=== PATIENT | female | born 1985 | race Caucasian/White ===

== ENCOUNTER 2023-07-29 15:04 | Observation (INO) | payer OTHER, SELFPAY ==
[2023-07-29 15:07] VITALS: BP 129/91; PULSE 87; RESP 16; TEMP 36.1; O2SAT 95; BMI 34.0
--- NOTE | 2023-07-29 15:29 | ED.VIS.GI ---
HPI HPI - GI History of Present Illness Chief Complaint: Abd Pain Informant: patient Abdominal Pain/Flank Pain Onset: Days (2) Context: Gradual Onset Timing: Continuous Quality: Cramping and Sharp Location: Epigastric and RUQ Worsened by: Food Relieved by: Nothing Nausea/Vomiting/Emesis GI Symptom: Positive for Nausea and Vomiting Quality: Positive for Nonbilious; Negative for Blood streaks, Coffee ground or Hematemesis Diarrhea/Melena/Hematochezia GI Symptom: Positive for Diarrhea; Negative for Melena or Hematochezia Stool Quality: Positive for Loose and Watery Associated Symptoms Associated Symptoms: Negative for Dysuria, Frequency or Hematuria Narrative Narrative: Patient presents with right upper quadrant abdominal pain that has been getting worse over the past 2 days. Patient describes it as sharp and cramping. Patient states it is mainly over the right upper quadrant. Patient states it radiates into her back. Patient states her pain is worse with eating. Patient states it gets worse while she was eating. Patient admits to some nausea, vomiting, and diarrhea. Patient denies any melena or hematochezia. Patient denies any hematemesis or coffee-ground emesis. Patient denies any dysuria, frequency, or hematuria. Patient admits to some subjective chills and sweats. Patient admits to some slight shortness of breath because her pain also gets worse with deep breathing. [facility] Medical History (Updated 07/29/23 @ 21:[address] Marcelo Telles MD) Hypertension Home Medications bupropion HCl 200 mg tablet,12 hr sustained-release (Wellbutrin SR) 200 mg PO Q12H 07/29/23 [History Last Taken Unknown] duloxetine 30 mg capsule,delayed release 30 mg PO DAILY 07/29/23 [History Last Taken Unknown] hydroxyzine pamoate 50 mg capsule 50 - 100 mg PO TID PRN PRN anxiety 07/29/23 [History Last Taken Unknown] losartan 100 mg-hydrochlorothiazide 25 mg tablet 1 tab PO DAILY 07/29/23 [History Last Taken Unknown] Allergy/AdvReac Type Severity Reaction Status Date / Time codeine Allergy Intermediate Hives Verified 07/29/23 15:06 Surgical History (Updated 07/29/23 @ 15:[address] Cosmo Tubbs, DO) History of section History of endometrial ablation Hx of appendectomy Social History Smoking Status: Current every day smoker tobacco type: cigarettes ROS ROS ED Constitutional Constitutional ED: Reports chills and sweats; Denies fever(s) Eyes Eyes: Denies blurry vision or change in vision ENT ENT ED: Denies rhinorrhea or sore throat Cardiovascular Cardiovascular: Denies chest pain or palpitations Respiratory/Chest Respiratory/Chest: Reports dyspnea; Denies cough Gastrointestinal Gastrointestinal: Denies nausea or vomiting Genitourinary Genitourinary ED: Denies dysuria or hematuria Musculoskeletal Musculoskeletal: Reports back pain; Denies neck pain Integumentary Denies abscess or rash Neurologic Neurologic: Reports headache(s); Denies weakness Allergic/Immunologic Allergic/Immunologic ED: Denies mouth swelling or urticaria EXAM Physical Exam Const Vital Signs: 07/29/23 15:07 07/29/23 17:04 07/29/23 19:00 Temperature 96.9 F L Temperature Source Temporal Pulse Rate 87 78 Respiratory Rate 16 18 Blood Pressure 129/91 H 126/79 H 128/94 H Blood Pressure Mean 103 94 105 Pulse Ox 95 98 Oxygen Delivery Method Room Air Room Air Positive well nourished, well developed and obese General Appearance ED: well developed and NAD Nutritional Appearance: obese HEENT Reports moist mucous membranes Neck supple and no JVD Resp normal respiratory effort and clear to auscultation bilaterally Cardio regular rate and regular rhythm GI non-distended Palpation: soft and tender epigastric, RUQ and Deshpande's sign; Negative for guarding or rebound tenderness present Extremity full ROM Neuro CN's II-XII intact bilaterally, moves all extremities and no sensory deficits noted Sensorium / Orientation: alert Motor Exam: strength 5/5 throughout Psych mental status grossly normal Skin no wounds MDM MDM MDM Narrative Medical decision making narrative: Differential diagnosis includes cholecystitis, cholelithiasis, gastric ulcer, duodenal ulcer, pancreatitis, bowel obstruction, perforation, gastritis, and pyelonephritis. CBC will be obtained to assess for leukocytosis and anemia. Comprehensive metabolic profile will be obtained to assess for hepatic function, renal function, and electrolyte abnormality. Lipase will be obtained to assess for pancreatitis. Urinalysis will be obtained to assess for urinary tract infection and hematuria. Right upper quadrant ultrasound will be obtained to assess for cholecystitis and cholelithiasis. Lab Data Attestation: I reviewed the patient's lab results. Lab results narrative: CBC was reviewed and was within normal limits. Comprehensive metabolic profile was reviewed. Potassium was low at 3.0. ALT was slightly elevated at 72. The remainder was within normal limits. Anion gap was normal. Lipase was reviewed and was normal at 36. Serum hCG was reviewed and was negative. Urinalysis was reviewed. There is no evidence of urinary tract infection or hematuria. Labs: Laboratory Results - last 24 hr 07/29/23 07/29/23 16:20 18:20 WBC 9.9 RBC 5.44 H Hgb 14.5 Hct 43.6 MCV 80.1 L MCH 26.7 L MCHC 33.3 RDW Std Deviation 43.8 RDW Coeff of Mario 15.2 H Plt Count 381 MPV 9.6 Immature Gran % (Auto) 0.300 Neut % (Auto) 59.2 Lymph % (Auto) 32.4 [place] % (Auto) 5.9 Eos % (Auto) 1.6 Baso % (Auto) 0.6 Absolute Neuts (auto) 5.9 Absolute Lymphs (auto) 3.20 Nucleated RBC % 0 Sodium 134 L Potassium 3.0 L Chloride 101 Carbon Dioxide 29.0 Anion Gap 4 L BUN 9 Creatinine 0.70 Estim Creat Clear Calc 112.95 Est GFR (MDRD) Af Amer 120 Est GFR (MDRD) Non-Af 99 BUN/Creatinine Ratio 12.9 Glucose 83 Calcium 10.0 Total Bilirubin 0.50 AST 34 ALT 72 H Alkaline Phosphatase 72 Total Protein 8.0 Albumin 3.9 Globulin 4.1 Albumin/Globulin Ratio 1.0 Lipase 36 Serum , Qual NEGATIVE Urine Color Yellow Urine Clarity Clear Urine pH 6.0 Ur Specific [place] 1.010 Urine Protein Negative Urine Glucose (UA) Normal Urine Ketones Negative Urine Occult Blood Negative Urine Nitrite Negative Urine Bilirubin Negative Urine Urobilinogen Normal Ur Leukocyte Esterase Negative Urine RBC 0 SEEN Urine WBC 0-5 SEEN Ur Squamous Epith Cells 0-5 SEEN Urine Bacteria 2+ Urine Mucus 0 SEEN Radiography Diagnostic Testing: Clinical Impression(s) from Imaging Studies Gallbladder Ultrasound 07/29/23 15:59 IMPRESSION: Cholelithiasis and findings suspicious for acute cholecystitis HIDA scan would be helpful for confirmation if clinically warranted Electronically Signed: Isacc Kenney MD at 18:20 EDT , Right upper quadrant ultrasound was obtained. There is a solitary gallstone. There is a positive sonographic Deshpande sign. There is no gallbladder wall thickening. There is no pericholecystic fluid. There is no ductal dilatation. This was interpreted by the radiologist was also independently reviewed by myself. Treatment and Re-Evaluation :: Patient was given IV fluids, morphine, and Zofran. Patient was advised of her findings. Case was discussed with Dr. Telles from general surgery. He will be in to evaluate the patient. He will admit the patient to his service. Patient understood and was agreeable with the plan. All questions were answered. Discharge Plan Triage Chief Complaint: Abd Pain ED Provider: Cosmo Tubbs Dx/Rx/DC Orders Clinical Impression: Hypertension, Cholelithiasis Prescriptions: No Action hydroxyzine pamoate 50 mg capsule 50 - 100 mg PO TID PRN PRN (Reason: anxiety) losartan-hydrochlorothiazide 100-25 mg tablet 1 tab PO DAILY duloxetine 30 mg capsule,delayed release(DR/EC) 30 mg PO DAILY bupropion HCl [Wellbutrin SR] 200 mg tablet sustained-release 12 hr 200 mg PO Q12H Primary Care Provider: Michele Larose Referrals: Michele Larose MD [Primary Care Provider] - Disposition Disposition: Acute Care Hospital [facility]
--- NOTE | 2023-07-29 15:59 | US_ITS ---
STUDY: ABDOMINAL ULTRASOUND - RIGHT UPPER QUADRANT REASON FOR VISIT: Female, 38 years old PAIN TECHNIQUE: Ultrasound evaluation of the right upper quadrant was performed with real-time and static burgess-scale imaging. TECHNICAL QUALITY: Adequate. COMPARISON: None. FINDINGS: Liver: The liver measures 15.7 cm. There is normal echogenicity of the liver. The bile ducts are within normal limits. There is hepatic color flow. The direction of portal flow is hepatopetal. There is no demonstrated mass lesion. Gallbladder: Normal distended gallbladder. The gallbladder wall measures 2 mm. There is a positive sonographic Deshpande''s sign. There is no pericholecystic fluid. There is a solitary stone. Common Bile Duct (C.B.D.): The common bile duct measures 4 mm. Pancreas: Suboptimally visualized due to bowel gas producing artifact. Right Kidney: Normal size of the right kidney. The right kidney measures 12.3 x 5.4 x 5.5 cm. Normal renal cortex. The right cortex measures 1.7 cm. There is no demonstrated renal mass or cyst. There is no right hydronephrosis. US/Gallbladder IMPRESSION: Cholelithiasis and findings suspicious for acute cholecystitis HIDA scan would be helpful for confirmation if clinically warranted Electronically Signed: Isacc Kenney MD at 18:20 EDT ,
[2023-07-29] MEDS: Ondansetron 4 MG/2 ML Vial IV ×2 (16:18→20:06)
[2023-07-29] MEDS: Morphine 4 MG/ML Syringe IV ×2 (16:19→20:06)
[2023-07-29] MEDS: 0.9% Normal Saline (1000mL) 1,000 ML 1000 ML IV (16:20)
[2023-07-29 16:45] LABS: Absolute Neutrophil Count 5.9 X10^3/uL (2.0-7.7); Basophil# 0.06 X10^3/uL; Basophil% 0.6 % (0-1); Eosinophil# 0.16 X10^3/uL; Eosinophils% 1.6 % (0-5); Hematocrit 43.6 % (37-47); Hemoglobin 14.5 g/dL (12.0-15.0); Lymphocyte % 32.4 % (19-41); Mean Corp Hgb Conc 33.3 g/dL (32-36); Mean Corpuscular Hgb 26.7 pg (27.0-32.0); Mean Corpuscular Volume 80.1 fL (81-99); Mean Platelet Vol. 9.6 fl (6.2-12.0); Monocyte# 0.58 X10^3/uL; Monocyte% 5.9 % (0-10); NRBC Flagged by Analyzer 0 % (0-5); Neutrophil # 5.85 X10^3/uL (2.7-7.7); Neutrophil % 59.2 % (47-70); Platelet Count 381 K/mm3 (150-450); RBC Distribution Width CV 15.2 % (11.6-14.6); RBC Distribution Width SD 43.8 fl (35.1-43.9); Red Blood Count 5.44 M/mm3 (4.2-5.4); White Blood Count 9.9 K/mm3 (4.4-11.0)
[2023-07-29 17:04] VITALS: BP 126/79; PULSE 78; RESP 18; O2SAT 98
[2023-07-29 17:10] LABS: Internal QC Validated? YES +Cl - CLEAR BKGD; Pregnancy, Serum, hCG Quali. NEGATIVE Negative; Record Kit Lot#, Serum Preg. 718086
[2023-07-29 17:13] LABS: AST(SGOT) 34 U/L (15-37); Alanine Aminotransfer ALT/SGPT 72 U/L (13-56); Albumin, Serum 3.9 g/dL (3.2-5.0); Alkaline Phosphatase 72 U/L (45-117); Anion Gap 4 (5-15); BUN 9 mg/dL (7-18); BUN/Creat Ratio 12.9 RATIO (10-20); Chloride 101 mmol/L (98-107); EST Glomerular Filtration Rate 99 mL/min (>60); Est Glom Filt Rate - Afr Amer 120 mL/min (>60); Estimated Creatinine Clearance 112.95 ml/min; Globulin 4.1 g/dL (2.2-4.2); Glucose 83 mg/dL (74-106); Lipase 36 U/L (13-75); Sodium Level 134 mmol/L (136-145)
[2023-07-29 18:35] LABS: Mucous, Urine 0 SEEN /hpf (<or=2+); Red Blood Cells-Urine 0 SEEN /hpf (0-5)
[2023-07-29 18:39] LABS: Color, Urine Yellow (Yellow); Glucose, Dipstick Normal (Normal); Ketone-Dipstick Negative (Negative); Leukocyte Esterase-Dipstick Negative /ul (Negative); Nitrite-Dipstick Negative (Negative); Occult Blood-Urine Negative /ul (Negative); Protein-Dipstick Negative (Negative); Urine Bilirubin Dipstick Negative (Negative); Urine Clarity Clear (Clear); Urine Urobilinogen Normal (Normal)
[2023-07-29 18:46] LABS: Bacteria 2+ /hpf (None Seen); Squamous Epithelial Cells - UA 0-5 SEEN /hpf (5-10); White Blood Cells 0-5 SEEN /hpf (0-5)
[2023-07-29 19:00] VITALS: BP 128/94
[2023-07-29] MEDS: Potassium Chloride Oral Tablet 20 MEQ 40 MEQ PO (19:36)
[2023-07-29 21:00] VITALS: BP 131/79; PULSE 71; RESP 18; TEMP 36.8; O2SAT 97
--- NOTE | 2023-07-29 21:07 | EX.PCM.CON.S ---
Assessment & Plan Assessment/Plan (1) Cholecystitis, acute with cholelithiasis: PLAN: Patient is a 38-year-old female who is evaluated for cholecystitis and cholelithiasis. 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 However, patient has been informed extensively that certain other features of her history are rather atypical?including primary chest wall pain, frequent diarrhea, and complaints of bloating. Furthermore, there are some equivocal features of her workup as she certainly has sonographic evidence of cholelithiasis, but her biochemical workup is negative for findings of leukocytosis, left shift, or any cholestatic pattern to her liver function testing/hyperbilirubinemia. Thus I held a lengthy and detailed conversation with patient regarding the options for ongoing management to include possible HIDA imaging followed by cholecystectomy if deemed necessary versus upfront cholecystectomy. I also shared that if her symptoms were less severe I would have recommended possible EGD and evaluation for peptic ulcer disease/H. pylori. Yet, patient is in some significant distress with her symptoms this evening and she strongly wishes to pursue cholecystectomy at this time. Therefore she will be admitted and I have informed her that I would like for her to submit a stool sample should she have another bowel movement so that she can be evaluated for possible infectious etiology to her nausea, vomiting, and diarrhea. In the interim I will begin empiric IV antibiotic therapy with Zosyn. She will be held n.p.o. past midnight and I have requested consents be obtained for laparoscopic cholecystectomy with intraoperative cholangiography. Given the clinical features of her history and workup I have discussed with her that this surgery may not resolve all of her symptoms in totality and ongoing workup may be required. She confirms her acceptance of this unknown and wishes to proceed as described. Both the procedure and post procedure expectations were then delivered and patient expressed many thanks for the time and consideration. HPI Consult Data Date of Consult: 07/29/23 HPI Narrative Reason for Consultation: Concern for cholecystitis HPI Narrative: BRITT MORAN, is a 38 F who presents to [facility] with complaints of several months of right upper quadrant abdominal discomfort that reportedly radiates around to her back and up to her shoulder blades. She notes that over the last 2 days this has become associated with anorexia, nausea, vomiting, and frequent diarrhea. For example, today she shares all she has been able to keep down is some sugar-free Jell-O. She describes her vomitus as variably the food that she eats versus straight bilious emesis. She also remarks of some increased bloating and burping. She shares that her primary care provider obtained a right upper quadrant ultrasound in May of this year that demonstrated cholelithiasis but she became caught up in her daughter having a new baby and things at work so that she could not follow through on her own health. She also states that her primary care provider obtained a CT image of the abdomen pelvis yesterday that did not show gallstones and she was concerned about the limited time for the contrast to make it into her system as the cause for the lack of visibility. Patient's ER workup this evening is notable for CBC with normal WBC and no evidence of left shift. CMP is notable for only mild elevation of LFT. Right upper quadrant ultrasound was performed and showed evidence of cholelithiasis without gallbladder wall thickening, without pericholecystic fluid, and no biliary ductal dilatation. However, the final read by radiology was concerning for cholecystitis and they did confirm the presence of a positive sonographic Deshpande sign. A provisional recommendation for HIDA imaging was also made. Patient's only past medical history is that of hypertension and tobacco use. 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 Her past surgical history consist of a prior section and appendectomy (remotely). [facility] Medical History (Updated 07/29/23 @ 21:[address] Marcelo Telles MD) Hypertension Home Medications bupropion HCl 200 mg tablet,12 hr sustained-release (Wellbutrin SR) 200 mg PO Q12H 07/29/23 [History Last Taken Unknown] duloxetine 30 mg capsule,delayed release 30 mg PO DAILY 07/29/23 [History Last Taken Unknown] hydroxyzine pamoate 50 mg capsule 50 - 100 mg PO TID PRN PRN anxiety 07/29/23 [History Last Taken Unknown] losartan 100 mg-hydrochlorothiazide 25 mg tablet 1 tab PO DAILY 07/29/23 [History Last Taken Unknown] Allergy/AdvReac Type Severity Reaction Status Date / Time codeine Allergy Intermediate Hives Verified 07/29/23 15:06 Surgical History (Updated 07/29/23 @ 15:[address] Cosmo Tubbs, DO) History of section History of endometrial ablation Hx of appendectomy Social History Smoking Status: Current every day smoker tobacco type: cigarettes Physical Exam Const alert Constitutional Narrative: Anxious General Appearance: cooperative Nutritional Appearance: obese Eyes conjunctivae normal Resp normal respiratory effort GI GI Narrative: Obese, abdominal striae diffusely present, scar in the supraumbilical position consistent with prior piercing. Soft, moderately tender to palpation of the right upper quadrant with negative Deshpande sign (patient is able to complete a full inspiration) Lab / Micro Data 07/29/23 16:20 07/29/23 16:20 Labs: Laboratory Results - last 24 hr 07/29/23 16:20: WBC 9.9, RBC 5.44 H, Hgb 14.5, Hct 43.6, MCV 80.1 L, MCH 26.7 L, MCHC 33.3, RDW Std Deviation 43.8, RDW Coeff of Mario 15.2 H, Plt Count 381, MPV 9.6, Immature Gran % (Auto) 0.300, Neut % (Auto) 59.2, Lymph % (Auto) 32.4, [place] % (Auto) 5.9, Eos % (Auto) 1.6, Baso % (Auto) 0.6, Absolute Neuts (auto) 5.9, Absolute Lymphs (auto) 3.20, Nucleated RBC % 0, Sodium 134 L, Potassium 3.0 L, Chloride 101, Carbon Dioxide 29.0, Anion Gap 4 L, BUN 9, Creatinine 0.70, Estim Creat Clear Calc 112.95, Est GFR (MDRD) Af Amer 120, Est GFR (MDRD) Non-Af 99, BUN/Creatinine Ratio 12.9, Glucose 83, Calcium 10.0, Total Bilirubin 0.50, AST 34, ALT 72 H, Alkaline Phosphatase 72, Total Protein 8.0, Albumin 3.9, Globulin 4.1, Albumin/Globulin Ratio 1.0, Lipase 36, Serum , Qual NEGATIVE 07/29/23 18:20: Urine Color Yellow, Urine Clarity Clear, Urine pH 6.0, Ur Specific [place] 1.010, Urine Protein Negative, Urine Glucose (UA) Normal, Urine Ketones Negative, Urine Occult Blood Negative, Urine Nitrite Negative, Urine Bilirubin Negative, Urine Urobilinogen Normal, Ur Leukocyte Esterase Negative, Urine RBC 0 SEEN, Urine WBC 0-5 SEEN, Ur Squamous Epith Cells 0-5 SEEN, Urine Bacteria 2+, Urine Mucus 0 SEEN Imaging Radiology Impression Gallbladder Ultrasound 07/29/23 15:59 IMPRESSION: Cholelithiasis and findings suspicious for acute cholecystitis HIDA scan would be helpful for confirmation if clinically warranted Electronically Signed: Isacc Kenney MD at 18:20 EDT Reading Location ID and State: [facility] / [place] Tel , Service support , Charges/Coding Visit Charges Inpatient E&M: 27030 Init Hosp L2
[2023-07-29 22:08] VITALS: BMI 33.3
[2023-07-29 22:14] VITALS: BP 117/88; PULSE 84; RESP 18; TEMP 36.9; O2SAT 98
[2023-07-29] MEDS: Piperacil/Tazobactam 3.375 GM in 0.9% Normal Saline (50mL MB+) 50 ML IV (23:16)
[2023-07-29] MEDS: 0.9% Normal Saline (1000mL) 1,000 ML 125 ML IV (23:16)
[2023-07-29] MEDS: 0.9% Normal Saline (250mL Bag) 250 ML 15 ML IV (23:16)
[2023-07-30] VITALS (14 sets, daily range): BP systolic 128–157; BP diastolic 76–98; PULSE 68–98; RESP 16–18; TEMP 36.5–37.1; O2SAT 93–100; BMI 33.3
--- NOTE | 2023-07-30 | GALL_PTH ---
PATIENT: BRITT MORAN LOC: MS3 U#:[id number] AGE/SX: 38/F ROOM: MS317 RE07/29/[address]: Dr. Marcelo Telles MD : 1985 BED: 1 DIS: 07/30/2023 SPEC #: [id number] RECD: 07/30/23 18:30 STATUS: RAMAN MELENDREZ #: [id number] RYLAN: 07/30/23 00:[address]: Marcelo Telles DEPT: SURGICAL PATHOLOGY RECD BY: Agustin Benoit ENTERED: 08/02/23 10:08 SP TYPE: NAN MAHONEY DR: Dr. Michele Larose MD Tissues: Gallbladder, NOS Procedures: Surgery Specimen Level III HEADER OPERATION: Laparoscopic, Cholecystectomy with IOC PRE-OP DIAGNOSIS: Cholelithiasis TISSUE SUBMITTED: Gallbladder MICROSCOPIC DIAGNOSIS Gallbladder, cholecystectomy: Chronic cholecystitis and cholelithiasis. AM/mr 08/03/2023 MICROSCOPIC DESCRIPTION Slides are reviewed. GROSS DESCRIPTION Received is one container labeled with the patient's name and designated gallbladder. The specimen consists of a gallbladder measuring 9.0 cm in length and up to 3.5 cm in diameter. The external surface is pink-hart, smooth and glistening for the most part. Focally it is granular, hemorrhagic and contains cautery artifact. The gallbladder contains _ bile and yellowish-green mulberry stones measuring in aggregate 1.0 x 0.7 x 0.2 cm and one large mulberry yellowish-greenish stone measuring 0.9cm in greatest dimension. The smaller stone aggregates and measures 0.1 to 0.2cm in greatest dimension. The mucosa is bile-stained and without any mass lesions. The gallbladder wall measures up to 0.2 cm in thickness. Control Systems Technician sections from the gallbladder and the cystic duct are submitted in one cassette. / LV: 08/02/23 TC:3 CPT: 53207
[2023-07-30] MEDS: Ondansetron 4 MG/2 ML Vial IV ×3 (00:13→18:28)
[2023-07-30] MEDS: HYDROmorphone 0.5 MG/0.5 ML SYRINGE IV ×3 (00:14→09:36)
--- NOTE | 2023-07-30 05:00 | EKG12_ITS ---
Test Reason : AM EKG Blood Pressure : / mmHG Vent. Rate : 062 BPM Atrial Rate : 062 BPM P-R Int : 172 ms QRS Dur : 088 ms QT Int : 406 ms P-R-T Axes : 055 019 026 degrees QTc Int : 412 ms Normal sinus rhythm NO PREVIOUS AVAILABLE Reconfirmed by Marcelo Langley ([id number]), copy editor PALMIRA VERMA ([id number]) on 07/30/2023 10:57:38 AM Referred By: EARL Confirmed By:Marcelo Langley
[2023-07-30] MEDS: Piperacil/Tazobactam 3.375 GM in 0.9% Normal Saline (50mL MB+) 50 ML IV ×2 (05:11→14:25)
[2023-07-30] MEDS: 0.9% Normal Saline (1000mL) 1,000 ML 125 ML IV ×2 (05:16→17:29)
[2023-07-30 06:12] LABS: Absolute Neutrophil Count 3.4 X10^3/uL (2.0-7.7); Basophil# 0.03 X10^3/uL; Basophil% 0.4 % (0-1); Eosinophil# 0.15 X10^3/uL; Hematocrit 37.2 % (37-47); Hemoglobin 12.3 g/dL (12.0-15.0); Mean Corp Hgb Conc 33.1 g/dL (32-36); Mean Corpuscular Hgb 26.7 pg (27.0-32.0); Mean Corpuscular Volume 80.7 fL (81-99); Mean Platelet Vol. 8.9 fl (6.2-12.0); Monocyte# 0.57 X10^3/uL; Monocyte% 7.6 % (0-10); NRBC Flagged by Analyzer 0 % (0-5); Neutrophil # 3.43 X10^3/uL (2.7-7.7); Neutrophil % 45.7 % (47-70); Platelet Count 287 K/mm3 (150-450); RBC Distribution Width CV 15.2 % (11.6-14.6); RBC Distribution Width SD 44.5 fl (35.1-43.9); Red Blood Count 4.61 M/mm3 (4.2-5.4); White Blood Count 7.5 K/mm3 (4.4-11.0)
[2023-07-30 06:58] LABS: AST(SGOT) 28 U/L (15-37); Alanine Aminotransfer ALT/SGPT 58 U/L (13-56); Albumin, Serum 3.1 g/dL (3.2-5.0); Alkaline Phosphatase 53 U/L (45-117); Anion Gap 3 (5-15); BUN 9 mg/dL (7-18); BUN/Creat Ratio 13.2 RATIO (10-20); Calcium,Total 8.2 mg/dL (8.5-10.1); Chloride 110 mmol/L (98-107); Creatinine, Serum 0.68 mg/dL (0.55-1.02); EST Glomerular Filtration Rate 102 mL/min (>60); Est Glom Filt Rate - Afr Amer 123 mL/min (>60); Estimated Creatinine Clearance 115.07 ml/min; Globulin 3.1 g/dL (2.2-4.2); Glucose 96 mg/dL (74-106); Potassium 3.6 mmol/L (3.5-5.1); Protein, Total 6.2 g/dL (6.4-8.2); Sodium Level 137 mmol/L (136-145)
--- NOTE | 2023-07-30 07:09 | PN.SURG_ITS ---
Subjective Subjective Patient seen and examined during AM rounds. She is found resting in bed. She states that she just recently received pain medications thus feeling better. She still complains of right upper quadrant discomfort. She has not had any further diarrhea since her admission last night. She denies any further questions related to today's planned procedure with laparoscopic cholecystectomy. Objective Data Objective Data Vital Signs: Vital Signs Temp Pulse Resp BP Pulse Ox O2 Del Method 97.7 F L 69 16 128/88 H 100 Room Air 07/30/23 05:07 07/30/23 05:07 07/30/23 05:07 07/30/23 05:07 07/30/23 05:07 07/30/23 05:20 Oxygen Delivery Method Room Air Weight: 188 lb 6.4 oz Body Mass Index (BMI) 33.3 Intake & Output: Intake and Output for Last 24 Hours 07/28/23 07/29/23 07/30/23 23:59 23:59 23:59 Intake Total 1001 / 1001 1200 / 1200 Balance 1001 / 1001 1200 / 1200 Lab / Micro Data 07/30/23 05:50 07/30/23 05:50 Labs: Laboratory Results - last 24 hr 07/29/23 16:20: WBC 9.9, RBC 5.44 H, Hgb 14.5, Hct 43.6, MCV 80.1 L, MCH 26.7 L, MCHC 33.3, RDW Std Deviation 43.8, RDW Coeff of Mario 15.2 H, Plt Count 381, MPV 9.6, Immature Gran % (Auto) 0.300, Neut % (Auto) 59.2, Lymph % (Auto) 32.4, [place] % (Auto) 5.9, Eos % (Auto) 1.6, Baso % (Auto) 0.6, Absolute Neuts (auto) 5.9, Absolute Lymphs (auto) 3.20, Nucleated RBC % 0, Sodium 134 L, Potassium 3.0 L, Chloride 101, Carbon Dioxide 29.0, Anion Gap 4 L, BUN 9, Creatinine 0.70, Estim Creat Clear Calc 112.95, Est GFR (MDRD) Af Amer 120, Est GFR (MDRD) Non-Af 99, BUN/Creatinine Ratio 12.9, Glucose 83, Calcium 10.0, Total Bilirubin 0.50, AST 34, ALT 72 H, Alkaline Phosphatase 72, Total Protein 8.0, Albumin 3.9, Globulin 4.1, Albumin/Globulin Ratio 1.0, Lipase 36, Serum , Qual NEGATIVE 07/29/23 18:20: Urine Color Yellow, Urine Clarity Clear, Urine pH 6.0, Ur Specific [place] 1.010, Urine Protein Negative, Urine Glucose (UA) Normal, Urine Ketones Negative, Urine Occult Blood Negative, Urine Nitrite Negative, Urine Bilirubin Negative, Urine Urobilinogen Normal, Ur Leukocyte Esterase Negative, Urine RBC 0 SEEN, Urine WBC 0-5 SEEN, Ur Squamous Epith Cells 0-5 SEEN, Urine Bacteria 2+, Urine Mucus 0 SEEN 07/30/23 05:50: WBC 7.5, RBC 4.61, Hgb 12.3, Hct 37.2, MCV 80.7 L, MCH 26.7 L, MCHC 33.1, RDW Std Deviation 44.5 H, RDW Coeff of Mario 15.2 H, Plt Count 287, MPV 8.9, Immature Gran % (Auto) 0.300, Neut % (Auto) 45.7 L, Lymph % (Auto) 44.0 H, [place] % (Auto) 7.6, Eos % (Auto) 2.0, Baso % (Auto) 0.4, Absolute Neuts (auto) 3.4, Absolute Lymphs (auto) 3.30, Nucleated RBC % 0, Sodium 137, Potassium 3.6, Chloride 110 H, Carbon Dioxide 24.0, Anion Gap 3 L, BUN 9, Creatinine 0.68, Estim Creat Clear Calc 115.07, Est GFR (MDRD) Af Amer 123, Est GFR (MDRD) Non-Af 102, BUN/Creatinine Ratio 13.2, Glucose 96, Calcium 8.2 L, Total Bilirubin 0.70, AST 28, ALT 58 H, Alkaline Phosphatase 53, Total Protein 6.2 L, Albumin 3.1 L, Globulin 3.1, Albumin/Globulin Ratio 1.0 Radiography Diagnostic Testing: Radiology Impression Gallbladder Ultrasound 07/29/23 15:59 IMPRESSION: Cholelithiasis and findings suspicious for acute cholecystitis HIDA scan would be helpful for confirmation if clinically warranted Electronically Signed: Isacc Kenney MD at 18:20 EDT , Physical Exam Const oriented x3 and no apparent distress GI GI Narrative: Nondistended, soft, moderate tenderness to palpation of the right upper quadrant Assessment & Plan Assessment/Plan (1) Cholecystitis, acute with cholelithiasis: PLAN: Patient is a 38-year-old female who is evaluated for cholecystitis and cholelithiasis. 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 However, patient has been informed extensively that certain other features of her history are rather atypical?including primary chest wall pain, frequent diarrhea, and complaints of bloating. Furthermore, there are some equivocal features of her workup as she certainly has sonographic evidence of cholelithiasis, but her biochemical workup is negative for findings of leukocytosis, left shift, or any cholestatic pattern to her liver function testing/hyperbilirubinemia. Once again, patient's morning labs do not show evidence of leukocytosis and her mildly elevated ALT yesterday is spontaneously decreased. She remains tender in the right upper quadrant and again declines HIDA imaging. She feels prepared to undergo cholecystectomy and denies any further questions. Will thus plan to proceed to the operating room later today for procedure. Consents have been obtained. Charges/Coding Visit Charges Inpatient E&M: 76310 Subs Hosp L2
[2023-07-30] MEDS: 0.9% Saline Lock 10 ML Syringe IV ×3 (09:35→18:29)
--- NOTE | 2023-07-30 12:30 | RAD_ITS ---
EXAM: FL CHOLANGIOGRAPHY AND/OR PANCREATOGRAPHY CLINICAL INDICATION: LAP OUSMANE TECHNIQUE: Fluoroscopic guidance was provided by a physician during intraoperative exam. CUMULATIVE DOSE: 7.33 mGy. Total time 18.4 seconds. COMPARISON: Gallbladder ultrasound July 29, 2023 showing cholelithiasis and 4 mm proximal common duct. FINDINGS: GALLBLADDER: Cholecystectomy clips. BILE DUCTS: There is beaded moderate focal narrowed appearance of the distal common duct initially in the expected region of the pancreas but there is contrast emptying into the duodenum and there is distention of the focal narrowed segment during the exam on dynamic images 24-25. No filling defect identified. BOWEL: Unremarkable. Injected contrast is identified in the duodenum. RAD/Cholangiogram/ O R,Initial IMPRESSION: Intraoperative cholangiogram. No biliary obstruction, filling defect, or persistent distal common duct narrowing. No contrast reflux into the pancreatic duct. Electronically Signed: Rosamaria Coelho MD at 4:19 EDT ,
[2023-07-30] MEDS: 0.9% Normal Saline (1000mL) 1,000 ML 15 ML IV (12:46)
[2023-07-30] MEDS: Bupiv/Epi 0.25% 30 ML Vial (15:40)
--- NOTE | 2023-07-30 15:42 | OP.PCM_ITS ---
Report of Operation Date of Procedure: 07/30/23 Pre-Operative Diagnosis: Cholecystitis with cholelithiasis Post-Operative Diagnosis: Acute on chronic cholecystitis with cholelithiasis Surgery/Procedure Performed:: Laparoscopic cholecystectomy with intraoperative cholangiography Description of Surgical Findings:: ? Numerous adhesions of the omentum to the gallbladder fundus and infundibulum ? Normal gallbladder anatomy with single cystic duct and cystic artery ? Cholangiogram showing antegrade filling of the common bile duct through the ampulla Vater into the small bowel as well as retrograde filling of the common hepatic and proper hepatic ducts without filling defect Surgeon: Marcelo Telles brim ironer hand: Otoniel Mendez Type of Anesthesia: General/Supplemental Anesthesiologist: Vlad Alexander Specimen's removed: Gallbladder Estimated Blood Loss (mL): 20 Description of Procedure: After proper identification in the preoperative holding area the patient was brought to the operating room where she was positioned supine on the operating room table. Preoperatively SCDs were connected and antibiotics were administered. General anesthesia was then induced. Patient's abdomen was prepped and draped in usual sterile fashion. A formal timeout was conducted to confirm both patient and the procedure. Procedure was begun with a supraumbilical incision which was extended deeply down to the level of the fascia. The fascia was elevated and incised, as well as the peritoneum. A finger sweep was performed to ensure there were no underlying adhesions and a 12 mm balloon trocar was inserted. Initially I did not detect inferior adhesions b ut upon inserting the trocar I did visualize some interference from the omental fat so this process was repeated and the trocar was reinserted. (Later in the case I confirmed that there was simple omental adhesions to the anterior abdominal wall and no evidence of bowel injury with placement of this Neil trocar). Pneumoperitoneum was established at 15 mmHg. Three additional trocars (all 5 mm) were placed in the epigastrium and in the right upper quadrant. Inspection of the peritoneum revealed no inadvertent injury to the viscera below. The gallbladder was visualized with mild to moderate inflammation represented by omentum lesions to the gallbladder fundus and infundibular regions (more dense in the infundibular region). The gallbladder fundus was then grasped and elevated cephalad. Then, using careful dissection the peritoneum was opened and the structures of the hepatocystic triangle were delineated. Once the critical view of safety was obtained, the cystic duct was singly clipped and partially divided with a ductotomy. A cholangiocatheter was placed into the abdomen via a 14 inch angiocatheter in the epigastrium and was fed into the proximal segment of the cystic duct and clipped into place. Under fluoroscopy a cholangiogram was then obtained showing a standard length cystic duct flowing into a common bile duct with unobstructed antegrade flow of contrast into the duodenum. There was also retrograde flow through the common hepatic duct into the right and left hepatic ducts. Satisfied with this result, the cholangiocatheter was withdrawn and the proximal cystic duct was sealed with clips and the cystic duct was completely transected. The same process was used for the cystic artery. The gallbladder was then removed from the gallbladder fossa with the use of electrocautery. Selective electrocautery was used to obtain hemostasis in the gallbladder fossa. The gallbladder was placed in an Endo Catch bag and removed from the peritoneum. Patient's 12 mm supraumbilical port site was closed in a [id number] fashion using #1 PDS and a Maurice Philippe suture passer under direct laparoscopic visualization. Morison's pouch was irrigated and the effluent was suctioned free of the peritoneum. Hemostasis was again confirmed. Pneumoperitoneum was evacuated and the fascia of the 12 mm port site tied and infiltrated with additional local anesthetic. A total of 30 mL of anesthetic was injected at the port sites for postoperative pain control. The skin of each port site was then closed in subcuticular fashion using 4-0 Monocryl. Steri-Strips and bandages were applied as dressings. Patient tolerated the procedure well without any apparent complications. On emergence from their anesthetic the patient was taken to PACU for ongoing recovery. Complications None Admit VTE Documentation VTE Mechan Device Prophylaxis: SCD's Procedures Digestive 40xxx-49xxx: 59500 Laparo cholecystectomy/graph
[2023-07-30] MEDS: oxyCODONE 5 MG Tablet PO ×2 (17:29→21:07)
--- NOTE | 2023-07-30 19:34 | DCINST_ITS ---
Discharge Instructions Diet Discharge Diet: No restrictions Activity Discharge Activity: May Not Drive (No driving while using narcotic pain medication) and May Shower (Postoperative day 1) May shower in (days): 2 Ice area for (Minutes): 20 Lifting Restrictions: No lifting greater than 15 pounds for 2 weeks after surgery Dressing / Incision Call your doctor if your incision/area has: Continuous Slow Oozing, Increased Pain/ Swelling, Increased Redness, Foul Smelling Discharge and Swelling at the incision site Call your doctor if you observe: Fever of 101 or Higher Remove Dressing in: 2 days (Please leave Steri-Strips intact until they fall off spontaneously or are taken off at your follow-up visit) Cleanse incision/area with: Soap & Water Follow Up Care Please Follow Up With: Marcelo Telles MD When: 10-14days postop Test Results: Test results from this visit will be discussed in further detail at your follow- up appointment, if applicable. Discharge Plan Admission Admit Date/Time: 07/29/23 21:00 Primary Reason for Your Visit: Gallbladder surgery Attending Provider: Marcelo Telles Primary Care Provider: Michele Larose Discharge Orders/Prescriptions Prescriptions: New oxycodone 5 mg tablet 5 mg PO Q6H PRN (Reason: pain) 3 Days Qty: 14 0RF Continued hydroxyzine pamoate 50 mg capsule 50 - 100 mg PO TID PRN PRN (Reason: anxiety) losartan-hydrochlorothiazide 100-25 mg tablet 1 tab PO DAILY duloxetine 30 mg capsule,delayed release(DR/EC) 30 mg PO DAILY bupropion HCl [Wellbutrin SR] 200 mg tablet sustained-release 12 hr 200 mg PO Q12H Referrals / Follow Up: Michele Larose MD [Primary Care Provider] - Disposition Disposition (needs filled in before D/C Order can be placed): Home, Self Care
--- NOTE | 2023-07-30 19:35 | DS.PCM_ITS ---
Providers Date of Admission: 07/29/23 Primary Care Physician: Dr. Michele Larose MD Reason For Visit: CHOLECYSTITIS Diagnosis Discharge Diagnosis (1) Cholecystitis, acute with cholelithiasis: Status: Acute Code(s): K80.00 - Calculus of gallbladder with acute cholecystitis without obstruction Plan: Patient is a 38-year-old female who is evaluated for cholecystitis and cholelithiasis. 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 However, patient has been informed extensively that certain other features of her history are rather atypical?including primary chest wall pain, frequent diarrhea, and complaints of bloating. Furthermore, there are some equivocal features of her workup as she certainly has sonographic evidence of cholelithiasis, but her biochemical workup is negative for findings of leukocytosis, left shift, or any cholestatic pattern to her liver function testing/hyperbilirubinemia. Once again, patient's morning labs do not show evidence of leukocytosis and her mildly elevated ALT yesterday is spontaneously decreased. She remains tender in the right upper quadrant and again declines HIDA imaging. She feels prepared to undergo cholecystectomy and denies any further questions. Will thus plan to proceed to the operating room later today for procedure. Consents have been obtained. Medications at Discharge Home Medications bupropion HCl 200 mg tablet,12 hr sustained-release (Wellbutrin SR) 200 mg PO Q12H 07/29/23 duloxetine 30 mg capsule,delayed release 30 mg PO DAILY 07/29/23 hydroxyzine pamoate 50 mg capsule 50 - 100 mg PO TID PRN PRN anxiety 07/29/23 losartan 100 mg-hydrochlorothiazide 25 mg tablet 1 tab PO DAILY 07/29/23 oxycodone 5 mg tablet 5 mg PO Q6H PRN pain 3 days #14 tabs 07/30/23 Hospital Course Operations cholecystecomy (With cholangiography on 07/30/2023) Summary of Care Provided Hospital Course: Patient is a 38-year-old female who presented the evening of 07/29/2023 to [facility] ER with complaints of rather chronic right upper quadrant discomfort that had more acutely been accompanied by symptoms of anor exia, nausea, vomiting, and diarrhea. Her workup was at least in part concerning for diagnosis of cholecystitis, but she was made aware that some of her symptoms were atypical for this diagnosis. Still, treatment options were discussed and given her distress we resolved to pursue cholecystectomy the following day. On 07/30/2023 patient underwent an uncomplicated laparoscopic cholecystectomy with cholangiography. She was returned to the floor where she is transition to oral pain medications and the liquid diet. She tolerated these transitions without difficulty and expressed confidence that she would do well at home given her social support. Thus she was granted discharge to home with instructions for her wound care as well as follow-up. Physical Exam Const alert and oriented x3 Resp normal respiratory effort GI GI Narrative: Mild blood strikethrough patient's supraumbilical port site, otherwise port sites remained dressed with clean surgical dressings. Abdomen is nondistended and appropriately tender to palpation Medical Records Data Medical Nutrition Assessment Dietitian: Malnutrition Criteria Met Start: 07/30/23 12:34 Freq: Status: Active Protocol: Document 07/30/23 12:34 SLA (Rec: 07/30/23 12:34 SLA Desktop) Nutrition Malnutrition Evidence of Malnutrition Exists Yes Malnutrition (severe): Acute Illness/Injury Evidenced By Suboptimal Energy Intake ( Severe),Weight Loss (Severe) Clinical Problem Acute Disease or Injury Related Malnutrition Etiology related to GI dysfunction and no appetite Signs/Symptoms as evidenced by po intake meeting <75% of est nutritional needs x 2-3 weks and 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 Problem Recommendation Dietitian Recommendations/Changes As medically able, rec HARDY to Regular No Added Salt When po diet resumes, rec 4 oz chocolate Ensure Plus High Protein 4x/day w/ medpass Weight / BMI Weight Weight: 188 lb 6.4 oz Body Mass Index (BMI) 33.3 ABG / Lab / Microbiology Data 07/30/23 05:50 07/30/23 05:50 Laboratory: Laboratory Results - last 24 hr 07/30/23 05:50: WBC 7.5, RBC 4.61, Hgb 12.3, Hct 37.2, MCV 80.7 L, MCH 26.7 L, MCHC 33.1, RDW Std Deviation 44.5 H, RDW Coeff of Mario 15.2 H, Plt Count 287, MPV 8.9, Immature Gran % (Auto) 0.300, Neut % (Auto) 45.7 L, Lymph % (Auto) 44.0 H, [place] % (Auto) 7.6, Eos % (Auto) 2.0, Baso % (Auto) 0.4, Absolute Neuts (auto) 3.4, Absolute Lymphs (auto) 3.30, Nucleated RBC % 0, Sodium 137, Potassium 3.6, Chloride 110 H, Carbon Dioxide 24.0, Anion Gap 3 L, BUN 9, Creatinine 0.68, Estim Creat Clear Calc 115.07, Est GFR (MDRD) Af Amer 123, Est GFR (MDRD) Non-Af 102, BUN/Creatinine Ratio 13.2, Glucose 96, Calcium 8.2 L, Total Bilirubin 0.70, AST 28, ALT 58 H, Alkaline Phosphatase 53, Total Protein 6.2 L, Albumin 3.1 L, Globulin 3.1, Albumin/Globulin Ratio 1.0 D/C Instructions Discharge Diet: No restrictions May shower in (days): 2 Ice area for (Minutes): 20 Call your doctor if your incision/area has: Continuous Slow Oozing, Increased Pain/ Swelling, Increased Redness, Foul Smelling Discharge and Swelling at the incision site Call your doctor if you observe: Fever of 101 or Higher Cleanse incision/area with: Soap & Water Please Follow Up With: Marcelo Telles MD When: 10-14days postop Meaningful Use Info Meaningful Use Diagnoses (Choose all that apply): None applicable Discharge Plan Admission Admit Date/Time: 07/29/23 21:00 Primary Reason for Your Visit: Gallbladder surgery Attending Provider: Marcelo Telles Primary Care Provider: Michele Larose Discharge Orders/Prescriptions Prescriptions: New oxycodone 5 mg tablet 5 mg PO Q6H PRN (Reason: pain) 3 Days Qty: 14 0RF Continued hydroxyzine pamoate 50 mg capsule 50 - 100 mg PO TID PRN PRN (Reason: anxiety) losartan-hydrochlorothiazide 100-25 mg tablet 1 tab PO DAILY duloxetine 30 mg capsule,delayed release(DR/EC) 30 mg PO DAILY bupropion HCl [Wellbutrin SR] 200 mg tablet sustained-release 12 hr 200 mg PO Q12H Referrals / Follow Up: Michele Larose MD [Primary Care Provider] - Disposition Disposition (needs filled in before D/C Order can be placed): Home, Self Care Charges/Coding Visit Charges Inpatient E&M: 41457 Disch Hosp
== END 2023-07-30 21:45 | disposition home or self-care (01) ==
LOC: ED 21:15 → MS3 23:16
PROVIDERS: Admitting Provider Surgery; Emergency Provider Emergency Medicine; PCP Family Medicine; Visit Provider Surgery
PROC: (CPT 47610; principal; 2023-07-30 13:10)
DX: K80.12 Calculus of gallbladder with acute and chronic cholecystitis without obstruction (principal); I10 Essential (primary) hypertension; F17.210 Nicotine dependence, cigarettes, uncomplicated; Z79.899 Other long term (current) drug therapy
CPT/HCPCS: 47563; 00790; 36415; 74300; 76000; 76705; 80053; 81001; 83690; 84703; 85025; 88304; 93005; 96361; 96365; 96366; 96375; 96376; 97802; 99221; 99284; J7030; J7050; A4216; G0378; J2405